=== PATIENT | female | born 1960 | race Caucasian/White ===

== ENCOUNTER 2019-02-05 07:55 | Emergency (ER) | payer MEDICARE, MEDICAID ==
[~2019-02-05] VITALS: Ht 175.3 cm; Wt 73.3 kg
[2019-02-05 07:59] VITALS: PULSE 76; RESP 18; Ht 175.3 cm; Wt 73.3 kg
[2019-02-05] MEDS ORDERED: HYDROCHLOROTHIAZIDE 25 MG TAB PO ONE (09:00)
[2019-02-05] MEDS ORDERED: ONDA4TAB14 PO (10:32)
[2019-02-05] MEDS ORDERED: FER325 PO (10:36)
[2019-02-05] MEDS ORDERED: DOCU-144 PO (10:36)
--- NOTE | 2019-02-05 10:40 | ERD ---
ER Documentation Chief Complaint Chief Complaint pt feels weak and has stanton intermitamt x 1 month HPI Patient is a 58-year-old female with a past medical history of hypertension, uncontrolled, presents to the ER for concerns of "head pressure" as well as feeling weak for the last 4 months. Patient states 15 years ago she was told th at she had a cyst in her head. She states she feels that the cyst is causing her symptoms and she is requesting repeat imaging studies. Patient states she has a vague pressure-like sensation in her head. Patient states in the morning she wakes up feeling weak and sometimes does feel nauseous. She denies any chest pain or shortness of breath. Patient states that 4 months ago she did have a syncopal episode. She states she did not follow-up with provider. She states she will feel as if she is going to pass out approximately once a month. 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 Patient denies any additional syncopal episodes since 4 months ago. Patient states she has not taken her high blood pressure medications for over 1 month as she was trying to control her elevated blood pressure with her diet and exercise. Patient states she took hydrochlorothiazide 25 mg. Patient denies abdominal pain, nausea, vomiting, diarrhea, hematemesis or rectal bleeding. ROS All systems reviewed and are negative except as per history of present illness. Medications Home Meds Active Scripts Docusate Sodium* (Colace*) 100 Mg Capsule, 100 MG PO BID, #30 CAP Prov:ERNESTO MARTINEZ PA-C 02/05/19 Ferrous Sulfate* (Ferrous Sulfate*) 325 Mg Tabec, 325 MG PO BID, #30 TAB Prov:ERNESTO MARTINEZ PA-C 02/05/19 Ondansetron (Ondansetron Odt) 4 Mg Tab.rapdis, 4 MG PO Q6H PRN for NAUSEA AND/OR VOMITING, #10 TAB Prov:ERNESTO MARTINEZ PA-C 02/05/19 Reported Medications [None] No Conflict Check 02/24/12 [None] No Conflict Check 11/27/11 Allergies Allergies: Coded Allergies: No Known Drug Allergy (Verified Allergy, Mild, 02/05/19) PMhx/Soc History of Surgery: Yes (TUBALIGATION, CYST REMOVAL) Anesthesia Reaction: No Hx Neurological Disorder: Yes (SPINAL SENOSIS) Hx Respiratory Disorders: No Hx Cardiac Disorders: Yes (HTN) Hx Psychiatric Problems: No Hx Miscellaneous Medical Probl: No Hx Alcohol Use: No Hx Substance Use: No Hx Tobacco Use: No Smoking Status: Never smoker FmHx Family History: No diabetes Physical Exam Vitals Vital Signs Date Temp Pulse Resp B/P (MAP) Pulse Ox O2 O2 Flow FiO2 Time Delivery Rate 02/05/19 98.6 76 18 194/91 99 07:59 (125) Physical Exam GENERAL: Well-developed, well-nourished female. Appears in no acute distress. Speaking in full sentences HEAD: Normocephalic, atraumatic. No deformities or ecchymosis. EYE: Pupils equal, round, and reactive to light. EOMs intact. No conjunctival erythema. No eye discharge. ENT: External ear without any masses or tenderness, Nasal mucosa pink with no discharge. Oropharynx is pink without any tonsillar erythema or exudates. No uvula deviation. No kissing tonsils. NECK: Supple. No meningismus. Normal ROM of the neck. LUNG: Clear to auscultation bilaterally. No rhonchi, wheezing, rales or coarse breath sounds. HEART: Regular rate and rhythm. No murmurs, rubs or gallops. EXTREMITIES: Equal pulses bilaterally. No peripheral clubbing, cyanosis or edema. No unilateral leg swelling. He will stroboscope operator strength bilaterally. NEUROLOGIC: Alert and oriented x3, cooperative. Mood and affect appropriate to situation. Cranial nerves II through XII are grossly intact. Normal speech. Motor exam: 5/5 strength in upper and lower extremities. Sensory exam: Sensation intact to light touch on all four extremities. Cerebellar function exam: Rapid alternating movements intact. No dysmetria on [id number] and lrxd-or-rhek test. Steady gait. No pronator drift. SKIN: Normal color. Warm and dry. No rashes or lesions. Result Diagram: 02/05/19 0900 02/05/19 0900 Results 24 hrs Laboratory Tests Test 02/05/19 09:00 White Blood Count 4.6 10^3/ul Red Blood Count 4.37 10^6/ul Hemoglobin 11.1 g/dl Hematocrit 32.5 % Mean Corpuscular Volume 74.4 fl Mean Corpuscular Hemoglobin 25.4 pg Mean Corpuscular Hemoglobin Concent 34.2 g/dl Red Cell Distribution Width 14.4 % Platelet Count 190 10^3/UL Mean Platelet Volume 10.9 fl Immature Granulocytes % 0.000 % Neutrophils % 58.4 % Lymphocytes % 33.2 % Monocytes % 6.5 % Eosinophils % 1.5 % Basophils % 0.4 % Nucleated Red Blood Cells % 0.0 /100WBC Immature Granulocytes # 0.000 10^3/ul Neutrophils # 2.7 10^3/ul Lymphocytes # 1.5 10^3/ul Monocytes # 0.3 10^3/ul Eosinophils # 0.1 10^3/ul Basophils # 0.0 10^3/ul Nucleated Red Blood Cells # 0.0 10^3/ul Sodium Level 142 mmol/L Potassium Level 3.2 mmol/L Chloride Level 101 mmol/L Carbon Dioxide Level 32 mmol/L Anion Gap 9 Blood Urea Nitrogen 11 mg/dl Creatinine 0.78 mg/dl Est Glomerular Filtrat Rate mL/min > 60 mL/min Glucose Level 119 mg/dl Calcium Level 9.6 mg/dl Troponin I < 0.012 ng/ml Current Medications Medications Dose Sig/Harry Start Time Status Last (Trade) Ordered Route PRN Stop Time Admin Dose Reason Admin 25 mg ONCE ONCE 02/05/19 DC Hydrochloroth PO 09:00 iazide 02/05/19 09:00 (Hydrochlorot hiazide) Procedures/MDM ED COURSE: The patient was stable throughout ED course. I kept the patient and/or family informed of laboratory and diagnostic imaging results throughout the ED course. EKG: Read by Dr. Baltazar, attending physician. EKG shows normal sinus rhythm at a rate of [address] elevations noted. Nonspecific T wave abnormality noted. DIAGNOSTIC IMAGING: Read by radiologist. DIAGNOSTIC IMAGING REPORT Patient: ANGEL LEE : 1960 Age: 58 Sex: F MR #: [id number] DOS: 02/05/19 0835 Ordering MD: ERNESTO MARTINEZ PA-C Location: [facility] Room/Bed: PROCEDURE: CT Brain without contrast. CLINICAL INDICATION: Headache, dizziness TECHNIQUE: A CT of the brain was performed utilizing axial imaging from the skull base through the vertex without IV contrast. Multiplanar reformatted images were made. Images were reviewed on a PACS workstation. CTDIvol: 39.42 mGy DLP: 634.23 mGycm DICOM images are available. One or more of the following dose reduction techniques were utilized: 1.) Automated exposure control 2.) Adjustment of the mA +/- kV according to patient's size 3.) Use of iterative reconstruction technique. COMPARISON: None FINDINGS: CALVARIUM: Regional bones are intact. SINUSES: Paranasal sinuses and mastoid air cells are clear. BRAIN: There is subtle diminished attenuation within the periventricular white matter compatible with mild chronic small vessel ischemic changes. Shah - white differentiation is maintained and there is no evidence of an acute territorial infarction. No intracranial mass or evidence of hemorrhage. Ventricles and cisterns are unremarkable. IMPRESSION: 1. No acute intracranial abnormality. 2. Mild chronic small vessel ischemic changes. RPTAT: [facility] Physician Amado Date Time Electronically viewed and signed by Physician Amado on 02/05/2019 09:30 xB/ CC: ERNESTO MARTINEZ PA-C [id number] MEDICAL DECISION MAKING: Patient is a 58-year-old female with a past medical history of hypertension, uncontrolled, presents the ER for concerns of "head pressure" as well as feeling weak for the last 4 months. Patient states 4 months ago she did have a syncopal episode however she did not see a doctor for it. She states since that time she does occasionally feel lightheaded as if she is going to pass out however she does not. Last true syncopal episode was 4 months ago. vital signs were reviewed. Patient was afebrile. Patient was not hypoxic. Patient's blood pressure was noted to be 194/91. Patient has not taken her hydrochlorothiazide in 1 month. Hydrochlorthiazide 25 mg was ordered however was not demonstrated to patient here as patient did take her own pill in the exam room after provider left room. Blood work was obtained. CBC showed WBC count of 4.6. Hemoglobin was noted to be 11.1, hematocrit of 32.5. Lately count was within normal limits. BMP showed no severe electrolyte abnormalities, acidosis, alkalosis or renal injury. Troponin was within normal limits. EKG showed normal sinus rhythm, no ST elevations were noted. Reviewed by ED attending. CT scan of the brain was unremarkable except for mild chronic small vessel ischemic changes. I did discuss case with my supervising physician Dr. Baltazar who agreed that patient was stable for outpatient management. Patient was advised that she will need to follow-up with a neurologist and/or patient services coordinator for further management of her symptoms. Patient will likely benefit from additional head imaging studies as well as 24-hour Holter monitors. I discussed these findings with patient. Patient was encouraged to start taking blood pressure medications on a daily basis as prescribed to her. Patient also advised to stay hydrated and eat 3 meals a day. Strict return precautions given. At this time, the patient's presentation is most consistent with lightheadedness and anemia. Patient was started on iron supplements. Patient does not require immediate blood transfusion at this time. Low suspicion for severe electrolyte abnormalities, sepsis, ACS, arrhythmia, pericarditis, renal injury, liver injury, systemic infection, CVA, TIA, intracranial hemorrhage. Patient was nontoxic, [id number] prior to discharge. PRESCRIPTIONS: Zofran, Colace, iron supplements DISCHARGE: At this time, patient is stable for discharge and outpatient management. I have instructed the patient to follow-up with his/her primary care physician in 1-2 days. If symptoms persist, patient may need to see a specialist for further examinations and testing. I have instructed the patient to promptly return to the ER at any time for any new or worsening symptoms including increased increased pain, fever, nausea, vomiting, numbness, weakness, slurred speech, LOC. The patient and/or family expressed understanding of and agreement with this plan. All questions were answered. Home care instructions were provided. Disclaimer: Inadvertent spelling and grammatical errors are likely due to EHR/dictation software use and do not reflect on the overall quality of patient care. Also, please note that the electronic time recorded on this note does not necessarily reflect the actual time of the patient encounter. Departure Diagnosis: Primary Impression: Lightheadedness Additional Impressions: Headache Headache type: unspecified Headache chronicity pattern: unspecified pattern Intractability: not intractable Qualified Codes: R51 - Headache Anemia Anemia type: unspecified type Qualified Codes: D64.9 - Anemia, unspecified Condition: Fair Patient Instructions: Anemia, Near Syncope, Unknown, Weakness, Unk Cause Additional Instructions: Follow-up with a patient services coordinator for 24-hour Holter monitor. Follow-up with neurologist for further management of your symptoms ERNESTO MARTINEZ PA-C Feb 05, 2019 10:40
[2019-02-05 11:01] VITALS: BP 186/91
== END 2019-02-05 11:03 | disposition home or self-care (01) ==
LOC: FTE 07:55
DX: R51 Headache (principal); R42 Dizziness and giddiness; D64.9 Anemia, unspecified; I10 Essential (primary) hypertension
CPT/HCPCS: 36415; 70450; 80048; 84484; 85025; 93005